=== PATIENT | male | born 1940 | race Caucasian/White ===

== ENCOUNTER 2017-06-09 09:04 | Observation (INO) | payer MEDICARE, OTHER ==
[2017-06-09] VITALS (12 sets, daily range): BP systolic 73–140; BP diastolic 44–78; PULSE 18–68; RESP 16–20; TEMP 96–98; O2SAT 92–96
[~2017-06-09] VITALS: Ht 175.3 cm; Wt 105.9 kg
[2017-06-09] MEDS ORDERED: SODIUM CHLORID 0.9% 500 ML INJ 500 ML IV ONE (09:30)
[2017-06-09] MEDS ORDERED: SODIUM CHLORIDE 0.9% FLUSH 10 ML FLUSH IVF PRN (09:30)
--- NOTE | 2017-06-09 09:41 | PD ---
HPI Chief Complaint: Dizziness Time Seen by Provider: 09:14 Travel History International Travel<30 days: No Contact w/Intl Traveler<30days: No Traveled to known affect area: No History of Present Illness HPI This is a 76-year-old male with a history of coronary artery disease who presents for lightheadedness. He states that this morning, he had a cup of coffee and then became lightheaded. He states that he felt diffusely warm, nauseated. He did not have any chest pain or shortness of breath. He rested in bed for a while and began to feel better. He states that he still feels diffusely tired. He has had intermittent episodes of lightheadedness, none as much as today, for the last few weeks. He states that he has been more fatigued than usual in the evenings. He denies fever, chills, cough, congestion. No vomiting, diarrhea, melena, hematochezia. Symptoms are mild in severity. Onset gradual. No prior treatment. Alleviated by rest. Patient states that he has had similar symptoms in the past when he was having cardiac issues. PFSH Past Medical History Hx Anticoagulant Therapy: Yes (BABY ASA) Cardiac Catheterization: Yes Cardiovascular Problems: Yes (STENT X 1) Coronary Artery Disease: Yes Diabetes: Yes Past Surgical History Narrative Surgical PTCA, right knee surgery, GB, hernia Social History Alcohol Use: Yes (occ) Tobacco Use: No Substance Use: No Allergies-Medications (Allergen,Severity, Reaction): Coded Allergies: esomeprazole (Verified Allergy, Intermediate, SWELLING AND ITCHING TO ARMS , 06/09/17) lansoprazole (Verified Allergy, Intermediate, SWELLING AND ITCHING TO ARMS , 06/09/17) pantoprazole (Verified Allergy, Intermediate, SWELLING AND ITCHING TO ARMS , 06/09/17) sertraline (Verified Allergy, Intermediate, HEART SKIPS BEATS, 06/09/17) Reported Meds & Prescriptions Reported Meds & Active Scripts Active Reported Lotrisone Topical (Betamethasone/Clotrimazole) 1-0.05% Cream 1 Applic TOPICAL BID PRN Cosopt Opth Drops (Dorzolamide-Timolol Opth Drops) 22.3-6.8 Mg/Ml Soln 1 Drop EACH EYE BID Voltaren (Diclofenac Sodium) 1 % Gel..gram. 1 Applic TOPICAL DIRECTED PRN Brilinta (Ticagrelor) 90 Mg Tab 90 Mg PO BID Terazosin (Terazosin HCl) 5 Mg Cap 5 Mg PO HS Toprol XL (Metoprolol Succinate) 25 Mg Tab 12.5 Mg PO DAILY Ropinirole 2 Mg Tab 2 Mg PO HS Pepcid (Famotidine) 40 Mg Tab 40 Mg PO TID Nitrostat SL (Nitroglycerin) 0.6 Mg Subl 0.6 Mg SL DIRECTED PRN ONE TABLET UNDER THE TONGUE NEEDED FOR CHEST PAIN, MAY REPEAT EVERY FIVE MINUTES FOR A TOTAL OF 3 DOSES OR CALL 911 IF NO RELIEF Nasonex Nasal [place] (Mometasone Furoate) 50 Mcg/Act Naspr 1 [place] EACH NARE BID Metformin (Metformin HCl) 850 Mg Tab 850 Mg PO BIDPC Lisinopril 5 Mg Tab 5 Mg PO DAILY Claritin (Loratadine) 10 Mg Cap 10 Mg PO DAILY Atorvastatin (Atorvastatin Calcium) 80 Mg Tab 80 Mg PO DAILY Aspirin EC (Aspirin) 81 Mg Tabdr 81 Mg PO DAILY Review of Systems Except as stated in HPI: all other systems reviewed are Neg Physical Exam Narrative GENERAL: Alert, well nourished, well appearing patient resting on the bed in no acute distress. Vital Signs reviewed SKIN: Focused skin assessment warm/dry. HEAD: Atraumatic. Normocephalic. EYES: Pupils equal and round. No scleral icterus. No injection or drainage. ENT: No nasal bleeding or discharge. Mucous membranes pink and moist. NECK: Trachea midline. No JVD. Spontaneous, painless full range of motion with no meningismus CARDIOVASCULAR: Regular rate and rhythm. No murmur appreciated. Extremities warm and well perfused with bounding peripheral pulses RESPIRATORY: No accessory muscle use. Clear to auscultation. Breath sounds equal bilaterally. Breathing easily and speaking in full sentences GASTROINTESTINAL: Abdomen soft, non-tender, nondistended. Normal bowel sounds. No rigid, rebound, guarding MUSCULOSKELETAL: No obvious deformities. No clubbing. No cyanosis. No edema. Compartments are soft. No palpable calf cords. Negative Homans sign NEUROLOGICAL: Awake and alert. No obvious cranial nerve deficits. Motor grossly within normal limits. Normal speech. Sensation intact. Normal gait Data Data Last Documented VS Vital Signs Date Time Temp Pulse Resp B/P (MAP) Pulse Ox O2 Delivery O2 Flow Rate FiO2 06/09/17 11:03 62 16 119/58 (78) 60 16 123/48 (73) 63 16 102/47 (65) 06/09/17 10:30 95 Room Air 06/09/17 09:06 98.0 Orders Orders Electrocardiogram (06/09/17 09:24) Complete Blood Count With Diff (06/09/17 09:24) Comprehensive Metabolic Panel (06/09/17 09:24) Magnesium (Mg) (06/09/17 09:24) Ckmb (Isoenzyme) Profile (06/09/17 09:24) Troponin I (06/09/17 09:24) Act Partial Throm Time (Ptt) (06/09/17:24) Prothrombin Time / Inr (Pt) (06/09/17:24) Urinalysis - C+S If Indicated (06/09/17 09:24) Chest, Pa & Lat (06/09/17 09:24) Blood Glucose (06/09/17 09:24) Ecg Monitoring (06/09/17 09:24) Iv Access Insert/Monitor (06/09/17 09:24) Oximetry (06/09/17 09:24) Sodium Chloride 0.9% Flush (Ns Flush) (06/09/17 09:30) Orthostatic Vital Signs (06/09/17 09:24) Sodium Chlorid 0.9% 500 Ml Inj (Ns 500 M (06/09/17 09:30) Thyroid Stimulating Hormone (06/09/17 09:55) Admit Order (Ed Use Only) (06/09/17 11:17) Labs Laboratory Tests Test 06/09/17 09:55 06/09/17 10:05 White Blood Count 8.1 TH/MM3 Red Blood Count 4.22 MIL/MM3 Hemoglobin 12.6 GM/DL Hematocrit 37.9 % Mean Corpuscular Volume 89.7 FL Mean Corpuscular Hemoglobin 29.9 PG Mean Corpuscular Hemoglobin Concent 33.3 % Red Cell Distribution Width 13.1 % Platelet Count 278 TH/MM3 Mean Platelet Volume 6.6 FL Neutrophils (%) (Auto) 70.5 % Lymphocytes (%) (Auto) 18.7 % Monocytes (%) (Auto) 4.4 % Eosinophils (%) (Auto) 5.1 % Basophils (%) (Auto) 1.3 % Neutrophils # (Auto) 5.7 TH/MM3 Lymphocytes # (Auto) 1.5 TH/MM3 Monocytes # (Auto) 0.4 TH/MM3 Eosinophils # (Auto) 0.4 TH/MM3 Basophils # (Auto) 0.1 TH/MM3 CBC Comment AUTO DIFF Differential Comment AUTO DIFF CONFIRMED Platelet Estimate NORMAL Platelet Morphology Comment NORMAL Red Cell Morphology Comment NORMAL Prothrombin Time 10.4 SEC Prothromb Time International Ratio 1.0 RATIO Activated Partial Thromboplast Time 26.4 SEC Blood Urea Nitrogen 17 MG/DL Creatinine 1.60 MG/DL Random Glucose 146 MG/DL Total Protein 6.9 GM/DL Albumin 3.1 GM/DL Calcium Level 8.4 MG/DL Magnesium Level 2.0 MG/DL Alkaline Phosphatase 96 U/L Aspartate Amino Transf (AST/SGOT) 6 U/L Alanine Aminotransferase (ALT/SGPT) 11 U/L Total Bilirubin 1.0 MG/DL Sodium Level 138 MEQ/L Potassium Level 4.4 MEQ/L Chloride Level 107 MEQ/L Carbon Dioxide Level 23.2 MEQ/L Anion Gap 8 MEQ/L Estimat Glomerular Filtration Rate 42 ML/MIN Total Creatine Kinase 57 U/L Troponin I LESS THAN 0.02 NG/ML Thyroid Stimulating Hormone 3rd Gen 0.592 uIU/ML Urine Collection Type VOIDED Urine Color YELLOW Urine Turbidity CLEAR Urine pH 5.5 Urine Specific [place] 1.020 Urine Protein NEG mg/dL Urine Glucose (UA) NEG mg/dL Urine Ketones NEG mg/dL Urine Occult Blood NEG Urine Nitrite NEG Urine Bilirubin NEG Urine Urobilinogen 0.2 MG/DL Urine Leukocyte Esterase NEG Urine WBC 0-2 /hpf Urine Squamous Epithelial Cells 0-2 /hpf Urine Mucus RARE /lpf Microscopic Urinalysis Comment CULT NOT INDICATED MDM Medical Decision Making Medical Screen Exam Complete: Yes Emergency Medical Condition: Yes Medical Record Reviewed: Yes Interpretation(s) EKG shows sinus rhythm with occasional supraventricular premature complexes. Rate of 60. Left bundle branch block. Patient's actually has an EKG with her that was performed on him on January 23, 2017. Today's EKG appears similar to prior Differential Diagnosis Near syncope, orthostatic hypotension, dehydration, atypical angina, electrolyte abnormality Narrative Course Patient was placed on a lens generator. IV access was established. Labs, imaging were performed. Patient was initially orthostatic. He was given IV fluids. I am concerned regarding his near syncopal episode. I reviewed the results of the workup with him. Plan for admission for further evaluation and care. Diagnosis Primary Impression: Near syncope Admitting Information Admitting Physician Requests: Yolie Samson MD Jun 09, 2017 09:41
--- NOTE | 2017-06-09 10:02 | RADRPT ---
EXAM DATE/TIME: 06/09/2017 09:39 [facility] COMPARISON: No previous studies available for comparison. INDICATIONS : Short of breath, weak, lightheaded, palpitations MEDICAL HISTORY : Congestive heart failure. SURGICAL HISTORY : Cardiac stent ENCOUNTER: Initial ACUITY: 1 day PAIN SCORE: 0/10 LOCATION: Bilateral chest FINDINGS: PA and lateral views of the chest demonstrate the lungs to be symmetrically aerated without evidence of mass, infiltrate or effusion. Mild cardiomegaly. No pulmonary vascular engorgement. Osseous struct ures are intact. CONCLUSION: No acute disease. Brady Garibay Jr., MD on June 09, 2017 at 10:00 Board Certified Radiologist. This report was verified electronically.
[2017-06-09 10:07] LABS: AUTOMATED NEUTROPHIL # 5.7 TH/MM3 (1.8-7.7); BASOPHIL # 0.1 TH/MM3 (0-0.2); BASOPHIL % 1.3 % (0.0-2.0); EOSINOPHIL # 0.4 TH/MM3 (0-0.4); EOSINOPHIL % 5.1 % (0.0-4.0); HEMATOCRIT 37.9 % (39.0-51.0); HEMOGLOBIN 12.6 GM/DL (13.0-17.0); LYMPH % 18.7 % (9.0-44.0); LYMPHOCYTE # 1.5 TH/MM3 (1.0-4.8); MEAN CELL VOLUME 89.7 FL (80.0-100.0); MEAN CORPUSCULAR HEMOGLOBIN 29.9 PG (27.0-34.0); MEAN CORPUSCULAR HGB CONC 33.3 % (32.0-36.0); MEAN PLATELET VOLUME 6.6 FL (7.0-11.0); MONO % 4.4 % (0.0-8.0); MONOCYTE # 0.4 TH/MM3 (0-0.9); NEUT % 70.5 % (16.0-70.0); PLATELET COUNT 278 TH/MM3 (150-450); RED BLOOD COUNT 4.22 MIL/MM3 (4.50-5.90); RED CELL DISTRIBUTION WIDTH 13.1 % (11.6-17.2); WHITE BLOOD COUNT 8.1 TH/MM3 (4.0-11.0)
[2017-06-09 10:11] LABS: BILIRUBIN, URINE NEG (NEG); BLOOD, URINE NEG (NEG); GLUCOSE,URINE NEG (NEG); KETONE, URINE NEG (NEG); NITRITE,URINE NEG (NEG); PH, URINE 5.5 (5.0-8.5); URINE COLOR YELLOW (YELLW/STRAW); URINE LEUKOCYTE ESTERASE NEG (NEG)
[2017-06-09 10:17] LABS: CHLORIDE 107 MEQ/L (98-107); SODIUM (NA) 138 MEQ/L (136-145)
[2017-06-09 10:18] LABS: MUCUS URINE RARE /lpf (OCC); SQUAMOUS EPITHELIAL CELL URINE 0-2 /hpf (0-5); WBC, URINE 0-2 /hpf (0-5)
[2017-06-09 10:20] LABS: CALCIUM 8.4 MG/DL (8.5-10.1)
[2017-06-09 10:21] LABS: ALBUMIN 3.1 GM/DL (3.4-5.0); BICARBONATE 23.2 MEQ/L (21.0-32.0); BLOOD UREA NITROGEN 17 MG/DL (7-18); GLUCOSE,RANDOM 146 MG/DL (74-106); PROTHROMBIN TIME - PATIENT 10.4 SEC (9.8-11.6)
[2017-06-09 10:24] LABS: ALT (GPT) 11 U/L (12-78); AST (GOT) 6 U/L (15-37); GLOMERULAR FILTRATION RATE 42 ML/MIN (>89)
[2017-06-09 10:26] LABS: TOTAL PROTEIN 6.9 GM/DL (6.4-8.2)
[2017-06-09 10:27] LABS: ALKALINE PHOSPHATASE 96 U/L (45-117)
[2017-06-09 10:29] LABS: TROPONIN I LESS THAN 0.02 NG/ML (0.02-0.05)
[2017-06-09] MEDS ORDERED: BRIL90TA PO (11:18)
[2017-06-09] MEDS ORDERED: TERA5CAP3 PO (11:18)
[2017-06-09] MEDS ORDERED: ATOR80TA45 PO (11:18)
[2017-06-09] MEDS ORDERED: CLAR10CA3 PO (11:18)
[2017-06-09] MEDS ORDERED: FAMO1TAB73 PO (11:18)
[2017-06-09] MEDS ORDERED: METF850T PO (11:18)
[2017-06-09] MEDS ORDERED: MOME17I EACH NARE (11:18)
[2017-06-09] MEDS ORDERED: NITR.6 SL (11:18)
[2017-06-09] MEDS ORDERED: TOPR25TA PO (11:18)
[2017-06-09] MEDS ORDERED: ASPI81TA23 PO (11:18)
[2017-06-09] MEDS ORDERED: ROPI2TAB PO (11:18)
[2017-06-09] MEDS ORDERED: LISI-519 PO (11:18)
[2017-06-09] MEDS ORDERED: LOTR15T TOPICAL (11:23)
[2017-06-09] MEDS ORDERED: VOLT1GEL16 TOPICAL (11:23)
[2017-06-09] MEDS ORDERED: DORZ2SOL7 EACH EYE (11:23)
[2017-06-09] MEDS ORDERED: ONDANSETRON HCL 4 MG/2 ML VIAL IVP PRN (11:45)
[2017-06-09] MEDS ORDERED: NALOXONE HCL 0.4 MG/ML AMP IV PUSH PRN (11:45)
[2017-06-09] MEDS ORDERED: SODIUM CHLORIDE 0.9% FLUSH 10 ML FLUSH IV FLUSH PRN (11:45)
[2017-06-09] MEDS ORDERED: ACETAMINOPHEN 325 MG TAB PO PRN (12:00)
--- NOTE | 2017-06-09 12:19 | RADRPT ---
EXAM DATE/TIME: 06/09/2017 11:52 [facility] COMPARISON: No previous studies available for comparison. INDICATIONS : Dizziness, general weakness. RADIATION DOSE: 63.58 CTDIvol (mGy) MEDICAL HISTORY : Cardiovascular disease. Hypercholesterolemia. Hypertension.COPD,Sleep apnea SURGICAL HISTORY : Cholecystectomy. Orthopedic ENCOUNTER: Initial ACUITY: 2 days PAIN SCALE: 0/10 LOCATION: cranial TECHNIQUE: Multiple contiguous axial images were obtained of the head. Using automated exposure control and adj ustment of the mA and/or kV according to patient size, radiation dose was kept as low as reasonably a chievable to obtain optimal diagnostic quality images. DICOM format image data is available electro nically for review and comparison. FINDINGS: CEREBRUM: The ventricles are normal for age. No evidence of midline shift, mass lesion, hemorrhage or acute in farction. No extra-axial fluid collections are seen. POSTERIOR FOSSA: The cerebellum and brainstem are intact. The 4th ventricle is midline. The cerebellopontine angle i s unremarkable. EXTRACRANIAL: The visualized portion of the orbits is intact. SKULL: The calvaria is intact. No evidence of skull fracture. Mucoperiosteal thickening maxillary sinuses. CONCLUSION: 1. Chronic sinus disease otherwise negative Tr Osuna MD FACR on June 09, 2017 at 12:17 Board Certified Radiologist. This report was verified electronically.
[2017-06-09] MEDS ORDERED: GLUCAGON 1 MG/ML VIAL OTHER PRN (13:45)
[2017-06-09] MEDS ORDERED: DICLOFENAC SODIUM TOPICAL PRN ×2 (13:45→21:00)
[2017-06-09] MEDS ORDERED: DEXTROSE 50% IN WATER 50 ML VIAL(D50) IV PUSH PRN (13:45)
[2017-06-09] MEDS ORDERED: NITROGLYCERIN 0.6 MG SL PRN (13:45)
--- NOTE | 2017-06-09 13:47 | HHI.HP ---
[facility] Primary Care Physician Unknown Admission Diagnosis Near Syncope Diagnoses: Chief Complaint: Dizziness Travel History International Travel<30 Days: No Contact w/Intl Traveler <30 Da: No Traveled to Known Affected Are: No History of Present Illness This patient is a 76-year-old woman with history of coronary artery disease who was home and began to feel lightheaded and clammy. He says that he had no chest pain or shortness of breath. He was worried because in January he had similar symptoms which were associated with chest pain and was found he had acute myocardial infarction. At that time he had a stent placed and has been on Brilinta, Toprol, baby aspirin, atorvastatin and lisinopril. This medication regimen was added to his terazosin which he had previously taken for hypertension. In the emergency room patient was hypotensive and orthostatic. CT of the head done in the emergency room was unremarkable. Patient feels better today after 500 mL of normal saline bolus. His blood pressure is improved. Patient is recommended for observation due to orthostatic hypotension with significant symptoms Review of Systems Constitutional: COMPLAINS OF: Dizziness, DENIES: Diaphoretic episodes, Fatigue , Fever, Weight gain, Weight loss, Chills, Change in appetite, Night Sweats Endocrine: DENIES: Heat/cold intolerance, Polydipsia, Polyuria, Polyphagia Eyes: DENIES: Blurred vision, Diplopia, Eye inflammation, Eye pain, Vision loss , Photosensitivity, Double Vision Respiratory: DENIES: Apneas, Cough, Snoring, Wheezing, Hemoptysis, Sputum production, Shortness of breath Cardiovascular: DENIES: Chest pain, Palpitations, Syncope, Dyspnea on Exertion , PND, Lower Extremity Edema, Orthopnea, Claudication Gastrointestinal: DENIES: Abdominal pain, Black stools, Bloody stools, Constipation, Diarrhea, Nausea, Vomiting, Difficulty Swallowing, Anorexia Genitourinary: DENIES: Sexual dysfunction, Urinary frequency, Urinary incontinence, Urgency, Hematuria, Dysuria, Nocturia, Penile Discharge, Testicular Pain, Testicular Swelling Musculoskeletal: DENIES: Joint pain, Muscle aches, Stiffness, Joint Swelling, Back pain, Neck pain Integumentary: DENIES: Abnormal pigmentation, Nail changes, Pruritus, Rash Hematologic/lymphatic: DENIES: Bruising, Lymphadenopathy Immunologic/allergic: DENIES: Eczema, Urticaria Neurologic: DENIES: Abnormal gait, Headache, Localized weakness, Paresthesias, Seizures, Speech Problems, Tremor, Poor Balance Psychiatric: DENIES: Anxiety, Confusion, Mood changes, Depression, Hallucinations, Agitation, Suicidal Ideation, Homicidal Ideation, Delusions Except as stated in HPI: all other systems reviewed are Neg (Restless leg) Past Family Social History Past Medical History Coronary artery disease status post stent, diabetes mellitus type 2, dyspepsia, restless leg syndrome Seasonal allergies Hyperlipidemia Past Surgical History Status post right meniscal repair, cholecystectomy, inguinal hernia repair, cardiac stenting Reported Medications Reviewed in the EMR, started his cardiac regimen in January 2017 Allergies: Coded Allergies: esomeprazole (Verified Allergy, Intermediate, SWELLING AND ITCHING TO ARMS , 06/09/17) lansoprazole (Verified Allergy, Intermediate, SWELLING AND ITCHING TO ARMS , 06/09/17) pantoprazole (Verified Allergy, Intermediate, SWELLING AND ITCHING TO ARMS , 06/09/17) sertraline (Verified Allergy, Intermediate, HEART SKIPS BEATS, 06/09/17) Active Ordered Medications Reviewed in the EMR Family History Mother from lung cancer, father from a cardiac event Social History , lives in [place], no tobacco or alcohol dependency Physical Exam Vital Signs Vital Signs Date Time Temp Pulse Resp B/P (MAP) Pulse Ox O2 Delivery O2 Flow Rate FiO2 06/09/17 12:30 97.0 52 20 130/62 (84) 94 06/09/17 12:16 57 16 111/78 (89) 95 06/09/17 12:05 58 16 96 Room Air 06/09/17 11:30 57 16 116/58 (77) 94 Room Air 06/09/17 11:03 62 16 119/58 (78) 60 16 123/48 (73) 63 16 102/47 (65) 06/09/17 10:30 55 16 117/61 (79) 95 Room Air 06/09/17 10:00 58 16 97/47 (64) 96 Room Air 06/09/17 09:51 63 16 95 Room Air 06/09/17 09:49 16 95 Room Air 06/09/17 09:35 51 18 116/57 (76) 55 18 118/56 (76) 73 18 73/44 (54) 06/09/17 09:06 98.0 59 16 115/55 (75) 94 Physical Exam GENERAL: This is a well-nourished, well-developed patient, in no apparent distress. SKIN: No rashes, ecchymoses or lesions. Cool and dry. HEAD: Atraumatic. Normocephalic. No temporal or scalp tenderness. EYES: Pupils equal round and reactive. Extraocular motions intact. No scleral icterus. No injection or drainage. ENT: Nose without bleeding, purulent drainage or septal hematoma. Throat without erythema, tonsillar hypertrophy or exudate. Uvula midline. Airway patent. NECK: Trachea midline. No JVD or lymphadenopathy. Supple, nontender, no meningeal signs. CARDIOVASCULAR: Regular rate and rhythm without murmurs, gallops, or rubs. RESPIRATORY: Clear to auscultation. Breath sounds equal bilaterally. No wheezes , rales, or rhonchi. GASTROINTESTINAL: Abdomen soft, non-tender, nondistended. No hepato-splenomegaly , or palpable masses. No guarding. MUSCULOSKELETAL: Extremities without clubbing, cyanosis, or edema. No joint tenderness, effusion, or edema noted. No calf tenderness. Negative Homans sign bilaterally. NEUROLOGICAL: Awake and alert. Cranial nerves II through XII intact. Motor and sensory grossly within normal limits. Five out of 5 muscle strength in all muscle groups. Normal speech. Laboratory Laboratory Tests Test 06/09/17 09:55 06/09/17 10:05 White Blood Count 8.1 Red Blood Count 4.22 Hemoglobin 12.6 Hematocrit 37.9 Mean Corpuscular Volume 89.7 Mean Corpuscular Hemoglobin 29.9 Mean Corpuscular Hemoglobin Concent 33.3 Red Cell Distribution Width 13.1 Platelet Count 278 Mean Platelet Volume 6.6 Neutrophils (%) (Auto) 70.5 Lymphocytes (%) (Auto) 18.7 Monocytes (%) (Auto) 4.4 Eosinophils (%) (Auto) 5.1 Basophils (%) (Auto) 1.3 Neutrophils # (Auto) 5.7 Lymphocytes # (Auto) 1.5 Monocytes # (Auto) 0.4 Eosinophils # (Auto) 0.4 Basophils # (Auto) 0.1 CBC Comment AUTO DIFF Differential Comment AUTO DIFF CONFIRMED Platelet Estimate NORMAL Platelet Morphology Comment NORMAL Red Cell Morphology Comment NORMAL Prothrombin Time 10.4 Prothromb Time International Ratio 1.0 Activated Partial Thromboplast Time 26.4 Blood Urea Nitrogen 17 Creatinine 1.60 Random Glucose 146 Total Protein 6.9 Albumin 3.1 Calcium Level 8.4 Magnesium Level 2.0 Alkaline Phosphatase 96 Aspartate Amino Transf (AST/SGOT) 6 Alanine Aminotransferase (ALT/SGPT) 11 Total Bilirubin 1.0 Sodium Level 138 Potassium Level 4.4 Chloride Level 107 Carbon Dioxide Level 23.2 Anion Gap 8 Estimat Glomerular Filtration Rate 42 Total Creatine Kinase 57 Troponin I LESS THAN 0.02 Thyroid Stimulating Hormone 3rd Gen 0.592 Urine Collection Type VOIDED Urine Color YELLOW Urine Turbidity CLEAR Urine pH 5.5 Urine Specific [place] 1.020 Urine Protein NEG Urine Glucose (UA) NEG Urine Ketones NEG Urine Occult Blood NEG Urine Nitrite NEG Urine Bilirubin NEG Urine Urobilinogen 0.2 Urine Leukocyte Esterase NEG Urine WBC 0-2 Urine Squamous Epithelial Cells 0-2 Urine Mucus RARE Microscopic Urinalysis Comment CULT NOT INDICATED Result Diagram: 06/09/17 0955 06/09/1755 Imaging Last Impressions Chest X-Ray 06/09/1724 Signed Impressions: Service Date/Time: Friday, June 09, 2017 09:39 - CONCLUSION: No acute disease. Brady Garibay Jr., MD Head CT 06/09/17 0000 Signed Impressions: Service Date/Time: Friday, June 09, 2017 11:52 - CONCLUSION: 1. Chronic sinus disease otherwise negative Tr Osuna MD FACR Caprini VTE Risk Assessment Caprini VTE Risk Assessment: Mod/High Risk (score >= 2) Caprini Risk Assessment Model Point Value = 1 Point Value = 2 Point Value = 3 Point Value = 5 Age 41-60 Minor surgery BMI > 25 kg/m2 Swollen legs Varicose veins or History of unexplained or recurrent spontaneous Oral contraceptives or hormone replacement Sepsis (< 1 month) Serious lung disease, including pneumonia (< 1 month) Abnormal pulmonary function Acute myocardial infarction Congestive heart failure (< 1 month) History of inflammatory bowel disease Medical patient at bed rest Age 61-74 Arthroscopic surgery Major open surgery (> 45 min) Laparoscopic surgery (> 45 min) Malignancy Confined to bed (> 72 hours) Immobilizing plaster cast Central venous access Age >= 75 History of VTE Family history of VTE Factor V Leiden Prothrombin [id number] Lupus anticoagulant Anticardiolipin antibodies Elevated serum homocysteine Heparin-induced thrombocytopenia Other congenital or acquired thrombophilia Stroke (< 1 month) Elective arthroplasty Hip, pelvis, or leg fracture Acute spinal cord injury (< 1 month) Prophylaxis Regimen Total Risk Factor Score Risk Level Prophylaxis Regimen 0-1 Low Early ambulation 2 Moderate Order ONE of the following: *Sequential Compression Device (SCD) *Heparin 5000 units SQ BID 3-4 Higher Order ONE of the following medications: *Heparin 5000 units SQ TID *Enoxaparin/Lovenox 40 mg SQ daily (WT < 150 kg, CrCl > 30 mL/min) *Enoxaparin/Lovenox 30 mg SQ daily (WT < 150 kg, CrCl > 10-29 mL/min) *Enoxaparin/Lovenox 30 mg SQ BID (WT < 150 kg, CrCl > 30 mL/min) AND/OR *Sequential Compression Device (SCD) 5 or more Highest Order ONE of the following medications: *Heparin 5000 units SQ TID (Preferred with Epidurals) *Enoxaparin/Lovenox 40 mg SQ daily (WT < 150 kg, CrCl > 30 mL/min) *Enoxaparin/Lovenox 30 mg SQ daily (WT < 150 kg, CrCl > 10-29 mL/min) *Enoxaparin/Lovenox 30 mg SQ BID (WT < 150 kg, CrCl > 30 mL/min) AND *Sequential Compression Device (SCD) Assessment and Plan Problem List: (1) Orthostasis ICD Code: I95.1 - Orthostatic hypotension Plan: We will BIANKA Laureano then, patient will need to continue his Toprol and lisinopril We will add IV hydration and follow clinically (2) Near syncope ICD Code: R55 - Syncope and collapse Status: Acute Plan: Appears resolved at this time, likely due to orthostasis from polypharmacy (3) DM type 2 (diabetes mellitus, type 2) ICD Code: E11.9 - Type 2 diabetes mellitus without complications Plan: Metformin held for now, continue with diabetic diet and will check blood sugars as needed Assessment and Plan Continue medical management for diabetes, coronary artery disease and restless leg Code Status DO NOT RESUSCITATE Discussed Condition With Patient, ER , Charo Zamora MD Jun 09, 2017 13:47
[2017-06-09] MEDS ORDERED: NITROGLYCERIN 0.4 MG SL 25 TABS/BTL SL PRN (14:15)
[2017-06-09] MEDS ORDERED: BETAMETHASONE/CLOTRIMAZOLE CREAM 15 GM TOPICAL PRN (15:00)
[2017-06-09] MEDS: INSULIN ASPART SUPPLEMENTAL SCALE SQ SCH ×2 (17:41→21:00)
[2017-06-09] MEDS ORDERED: FAMOTIDINE 40 MG PO SCH (18:00)
[2017-06-09] MEDS: FLUTICASONE PROPIONATE 50 MCG/ACT 16 GM NASAL SPRAY EACH NARE SCH (20:56)
[2017-06-09] MEDS: SODIUM CHLORIDE 0.9% FLUSH 10 ML FLUSH IV FLUSH SCH (20:56)
[2017-06-09] MEDS: DORZOLAMIDE/TIMOLOL OPTH SOLN 10 ML BTL EACH EYE SCH (20:56)
[2017-06-09] MEDS: TICAGRELOR 90 MG TAB PO SCH (20:56)
[2017-06-09] MEDS: FAMOTIDINE 20 MG TAB PO SCH (20:57)
[2017-06-09] MEDS ORDERED: SENNOSIDES 8.6 MG TAB PO PRN (21:00)
[2017-06-10] VITALS: BP 139/58; PULSE 65; RESP 16; TEMP 97.3; O2SAT 90
[2017-06-10 07:11] LABS: BASOPHIL # 0.1 TH/MM3 (0-0.2); BASOPHIL % 0.8 % (0.0-2.0); EOSINOPHIL # 0.4 TH/MM3 (0-0.4); EOSINOPHIL % 4.5 % (0.0-4.0); HEMATOCRIT 35.1 % (39.0-51.0); HEMOGLOBIN 12.3 GM/DL (13.0-17.0); LYMPH % 20.2 % (9.0-44.0); LYMPHOCYTE # 1.8 TH/MM3 (1.0-4.8); MEAN CELL VOLUME 90.5 FL (80.0-100.0); MEAN CORPUSCULAR HEMOGLOBIN 31.7 PG (27.0-34.0); MEAN CORPUSCULAR HGB CONC 35.1 % (32.0-36.0); MONO % 6.4 % (0.0-8.0); MONOCYTE # 0.6 TH/MM3 (0-0.9); NEUT % 68.1 % (16.0-70.0); PLATELET COUNT 271 TH/MM3 (150-450); RED BLOOD COUNT 3.88 MIL/MM3 (4.50-5.90); RED CELL DISTRIBUTION WIDTH 13.4 % (11.6-17.2); WHITE BLOOD COUNT 8.9 TH/MM3 (4.0-11.0)
[2017-06-10 07:19] LABS: CALCIUM 8.3 MG/DL (8.5-10.1)
[2017-06-10 07:20] LABS: BICARBONATE 22.8 MEQ/L (21.0-32.0)
[2017-06-10 07:23] LABS: CREATININE 1.3 MG/DL (0.60-1.30)
[2017-06-10 08:00] VITALS: BP 133/62; PULSE 65; RESP 20; TEMP 98; O2SAT 92
[2017-06-10] MEDS: INSULIN ASPART SUPPLEMENTAL SCALE SQ SCH (08:00)
[2017-06-10] MEDS: FLUTICASONE PROPIONATE 50 MCG/ACT 16 GM NASAL SPRAY EACH NARE SCH (08:04)
[2017-06-10] MEDS: TICAGRELOR 90 MG TAB PO SCH (08:06)
[2017-06-10] MEDS: FAMOTIDINE 20 MG TAB PO SCH (08:06)
[2017-06-10] MEDS: SODIUM CHLORIDE 0.9% FLUSH 10 ML FLUSH IV FLUSH SCH (08:07)
[2017-06-10] MEDS: DORZOLAMIDE/TIMOLOL OPTH SOLN 10 ML BTL EACH EYE SCH (08:07)
[2017-06-10] MEDS ORDERED: LISI-519 PO (08:44)
--- NOTE | 2017-06-10 08:45 | HHI.DCPOC ---
Discharge Care Plan Diagnosis: (1) Orthostasis (2) DM type 2 (diabetes mellitus, type 2) (3) Near syncope Goals to Promote Your Health * To prevent worsening of your condition and complications * To maintain your health at the optimal level Directions to Meet Your Goals Take your medications as prescribed Follow your dietary instruction Follow activity as directed Keep your appointments as scheduled Take your immunizations and boosters as scheduled If your symptoms worsen call your PCP, if no PCP go to Urgent Care Center or Emergency Room Smoking is Dangerous to Your Health. Avoid second hand smoke Call the 24-hour hour crisis hotline for domestic abuse at Charo Bennett MD Jun 10, 2017 08:45
[2017-06-10] MEDS ORDERED: ASPIRIN EC 81 MG TABEC PO SCH (09:00)
[2017-06-10] MEDS ORDERED: ATORVASTATIN 40 MG TAB PO SCH (09:00)
[2017-06-10] MEDS ORDERED: LISINOPRIL 5 MG TAB PO SCH (09:00)
[2017-06-10] MEDS ORDERED: METOPROLOL SUCCINATE 25 MG EXTENDED RELEASE TAB PO SCH (09:00)
--- NOTE | 2017-06-10 13:23 | EKG ---
Date Performed: 06/09/2017 Time Performed: 09:26:05 PTAGE: 76 years EKG: Sinus rhythm WITH OCCASIONAL SUPRAVENTRICULAR PREMATURE COMPLEXES LEFT BUNDLE BRANCH BLOCK ABNORMAL ECG NO PREVIOUS TRACING DOCTOR: Alexys Verde Interpretating Date/Time 06/10/2017 13:20:08
== END 2017-06-10 10:41 | disposition home or self-care (01) ==
LOC: PHED 09:04 → PHEDA 11:19 → PH3A 12:32
PROVIDERS: ADMIT Hospitalist; ATTEND Hospitalist
DX: I95.1 Orthostatic hypotension (principal); R55 Syncope and collapse; R53.1 Weakness; R11.0 Nausea; I25.10 Atherosclerotic heart disease of native coronary artery without angina pectoris; I10 Essential (primary) hypertension; E11.9 Type 2 diabetes mellitus without complications; J44.9 Chronic obstructive pulmonary disease, unspecified; I44.7 Left bundle-branch block, unspecified; R94.31 Abnormal electrocardiogram [ECG] [EKG]; I25.2 Old myocardial infarction; E78.00 Pure hypercholesterolemia, unspecified; G47.30 Sleep apnea, unspecified; J30.2 Other seasonal allergic rhinitis; G25.81 Restless legs syndrome; Z79.899 Other long term (current) drug therapy; Z79.82 Long term (current) use of aspirin; Z95.5 Presence of coronary angioplasty implant and graft
CPT/HCPCS: 70450; 71046; 80048; 80053; 81001; 82550; 82948; 83735; 84443; 84484; 85025; 85610; 85730; 93005; 96360; 99285; G0378; J1815; J7040